=== PATIENT | male | born 1945 | race Hispanic/Latino ===

== ENCOUNTER → 2024-10-29 | Day surgery (SDC) | payer MEDICARE ==
[~2024-10-29] MED LIST: CARVEDILOL3.125 MG PO; ENTRESTO 24 MG1 EACH PO; GLYCOPYRROLATE INJ 0.2 MG/ML VIAL ONE; IRON PO; ISOSORBIDE MONO30 MG PO; KETAMINE HCL INJ 50 MG/ML 10 ML VIAL ONE; LASIX20 MG PO; LIDOCAINE HCL 2% LOCAL INJ 5 ML SDV VIAL INJ ONE; NITROGLYCERIN0.4 MG SL; PLAVIX75 MG PO; PROPOFOL IV EMULSION 10 MG/ML 20 ML VIAL ONE; VITAMIN K100 MCG PO
[2024-10-29] MEDS: LACTATED RINGER'S 1,000 ML ONE (07:59)
[2024-10-29 08:42] LABS: INR 1.02; PROTHROMBIN TIME 14.3 seconds (11.9-14.5)
[2024-10-29 08:43] LABS: PARTIAL THROMBOPLASTIN TIME 40.2 seconds (23.8-35.5)
[2024-10-29] MEDS: SODIUM CHLORIDE 0.9% 1000ML 1,000 ML ONE (09:00)
[2024-10-29 09:26] VITALS: TEMP 97.8
[2024-10-29 09:40] VITALS: BP 119/84; PULSE 89; RESP 16; O2SAT 95
== END | disposition home or self-care (01) ==
LOC: OR 06:51
PROVIDERS: ATTEND Internal Medicine Gastroenterology
DX: K21.9 Gastro-esophageal reflux disease without esophagitis (principal); K29.50 Unspecified chronic gastritis without bleeding; K44.9 Diaphragmatic hernia without obstruction or gangrene; K31.89 Other diseases of stomach and duodenum; I13.0 Hypertensive heart and chronic kidney disease with heart failure and stage 1 through stage 4 chronic kidney disease, or unspecified chronic kidney disease; I50.9 Heart failure, unspecified; E11.22 Type 2 diabetes mellitus with diabetic chronic kidney disease; N18.30 Chronic kidney disease, stage 3 unspecified; I25.10 Atherosclerotic heart disease of native coronary artery without angina pectoris; Z95.5 Presence of coronary angioplasty implant and graft; I25.2 Old myocardial infarction; D64.9 Anemia, unspecified; G47.33 Obstructive sleep apnea (adult) (pediatric); M19.91 Primary osteoarthritis, unspecified site; Z79.899 Other long term (current) drug therapy
CPT/HCPCS: 36415; 43239; 82948; 85610; 85730; 88305; 88313; 88342; 93005; J2003; J2704; J7030; J7121